=== PATIENT | female | born 1985 ===

== ENCOUNTER 2017-01-22 17:57 | Inpatient (IN) | payer OTHER ==
[2017-01-22 18:03] VITALS: BMI 36.3
[2017-01-22 19:00] VITALS: O2SAT 100
[2017-01-22 19:15] LABS: HEMATOCRIT 39.3 % (34.0-47.0); MEAN CELL VOLUME 81.4 fl (81.0-99.0); MEAN CORPUSCULAR HEMOGLOBIN 26.3 pg (27.0-31.0); MEAN CORPUSCULAR HGB CONC 32.4 g/dL (33.0-37.0); RED CELL DISTRIBUTION WIDTH 15.3 % (11.5-14.5); WHITE BLOOD COUNT 17.8 K/uL (4.8-10.8)
[2017-01-22] MEDS ORDERED: Penicillin G 5 Million Unit Vial IVPB ONE ×2 (19:35→19:36)
--- NOTE | 2017-01-22 22:19 | OBHP ---
Datetime: 01/22/2017 19:01 IP Adm Impression: Term, intrauterine ; No Active Labor; Intact Membranes IP Chief Complaint Other: Anhydramnios IP Adm Impression Other: Anhydramnios IP Admit Plan: Admit to unit; Initiate labor induction protocol Admit Comment, IP Provider: This is a 32 y/o at 38 weeks GA, ELISABETH : 02/06/17 base on US who presen ts for scheduled induction of labor due to Anhydramnios on growth scan done today. Patient denies any past medical history. Denies regular uterine contractions, leakage of fluids and/or vaginal bleeding . Reports good movements. Other patient is feeling well, and denies any complains at this evalu ation. PMHx: No reported OBHx: Allergies: NKDA SHx: no reported SocialHx: denies smoking, etoh, and/or recreational drugs. Medications: taking vitamins. O: labs: GBS: positive, antibody screen: neg, Rubella: immune, RPR: neg, HIV: neg, HBsAg: neg, A:32 y/o with IUP at 38 weeks, with scheduled IOL due to Anhydramnios. Plan: -Admit to unit -Start induction of labor protocol -Cervidil Vag once -CBC, Type and Screen, RPR -Penicillin for GBS treatment as per protocol( during active labor) -Case discussed with Dr. Mackenzie Cuba PGY1 Ob hospitalist on-call. Case was discussed earlier today with PMD/MFM dept...will start IOL. Inessa morton and her understand medical condition, IOL, medications, pain management, delvirey and po stpartum care. I saw and examined this pt myslef. JESSICAO...start Cervidl intravaginally Pelvic Type - PN: Adequate Abdomen - PN: Abnormal Lungs - PN: Normal Heart - PN: Normal Thyroid - PN: Normal Neurologic - PN: Normal HEENT - PN: Normal General - PN: Normal FHR - Baseline A Provider: 140 EGA AdmitDate IP: 38.4 IP Indication for Induction: Other IP Indication for Induction Oth: Anhydramnios IP Chief Complaint: Scheduled induction of labor NICHD Variability Prov Fetus A: Moderate 6-25bpm NICHD Accel Fetus A IP Provider: [id number] FHR Category Provider Fetus A: Category I NICHD Decel Fetus A IP Provider: None Genitourinary Exam: Normal Datetime: 01/22/2017 18:36 Extremities - PN: Normal Comments, ACOG Physical Exam: ROS: General - no fatigue HEENT: No GIRALDO; no visual disturbance CV: no CP; no palpitations RESP: No Cough; no SOB GI: No N/V/D : No F/U/D MS: no joint pain IP Hx Assessment: The History has been Reviewed and is Current
--- NOTE | 2017-01-23 06:15 | OBPN ---
Datetime: 01/23/2017 06:10 IP Progress Impression: Reassuring heart rate IP Informed Consent Obtain: Vaginal Delivery; Risks, Benefits and Alternatives Discussed IP Progress Plan: Continue present management; Induction; Cervical Ripening IP Progress Note Comment: Notified that no cervical change...Cervidil removed...will start Cytotec 5 0mcg po q4h... medications were discussed with patient and her upon admission FHR Category Provider Fetus A: Category I Datetime: 01/22/2017 19:01 FHR - Baseline A Provider: 140 NICHD Accel Fetus A IP Provider: [id number] NICHD Variability Prov Fetus A: Moderate 6-25bpm NICHD Decel Fetus A IP Provider: None
[2017-01-24] MEDS ORDERED: Nalbuphine 20 mg/ml Inj (1 ml) IVP ONE (01:30)
[2017-01-24] MEDS: Lactated Ringer's 1,000 ML IV SCH ×2 (09:00→16:00)
--- NOTE | 2017-01-24 13:22 | OBPN ---
Datetime: 01/24/2017 13:17 IP Progress Impression Other: Anhydramnios IP Procedures: Sterile Vag Exam IP Progress Plan: Cervical Ripening Membranes, Provider: Intact FHR - Baseline A Provider: 140 IP Progress Note Comment: 32 yo G1 at 38+6 wks for induction for anhydramnios s/p cervidil, oral mis o x 3, and cervidil #2 Pt given miso 25 mcg vaginally at 1:15pm GBS positive, will restart PCN for GBS prophylaxis when labor starts Vital Signs Provider: Reviewed NICHD Accel Fetus A IP Provider: [id number] FHR Category Provider Fetus A: Category I NICHD Variability Prov Fetus A: Moderate 6-25bpm Dilatation, Provider: 0 Effacement, Provider: 50 Station, Provider: -3 NICHD Decel Fetus A IP Provider: None
[2017-01-25] MEDS ORDERED: Oxytocin 30 units/LR 500ML 500 ML IV SCH (07:15)
[2017-01-25] MEDS: Lactated Ringer's 1,000 ML IV SCH (09:04)
--- NOTE | 2017-01-25 09:30 | OBPN ---
Datetime: 01/25/2017 09:27 IP Progress Impression: Reassuring heart rate; Reactive non-stress test IP Informed Consent Obtain: Vaginal Delivery; Risks, Benefits and Alternatives Discussed IP Progress Plan: Induction Membranes, Provider: Intact FHR - Baseline A Provider: 140 IP Progress Note Comment: OB Hospitalist eulalio...Pt was started on Cervidil, changed to Cytotec and now Pitocin ordered. She was admitted by hi Jan 22 for [place]. She feels fine. +FM. She understands her medical condition, IOL, Pitocin... Operative deliver vs continued IOL discussed. She wants to start Pitocin for IOL. NICHD Accel Fetus A IP Provider: [id number] FHR Category Provider Fetus A: Category I NICHD Variability Prov Fetus A: Moderate 6-25bpm
--- NOTE | 2017-01-25 12:02 | OBPN ---
Datetime: 01/25/2017 11:59 IP Progress Impression: Reassuring heart rate IP Informed Consent Obtain: Vaginal Delivery; Risks, Benefits and Alternatives Discussed IP Progress Plan: Continue present management; Induction Pool Provider: Negative Membranes, Provider: Intact Contraction Comments Provider: 2-3m FHR - Baseline A Provider: 140 Presentation-Admit: Vertex IP Progress Note Comment: OB hospitalist eulalio She feels CTX pain AROM attempted but too high Pitocin at 10miu/h Discussion with pt about continued IOL...nipple stim/Pitocin/unable to place balloon NICHD Accel Fetus A IP Provider: [id number] FHR Category Provider Fetus A: Category I NICHD Variability Prov Fetus A: Moderate 6-25bpm Dilatation, Provider: FT Effacement, Provider: long Station, Provider: high NICHD Decel Fetus A IP Provider: None
[2017-01-25] MEDS ORDERED: Lactated Ringer's 2,000 ML IV SCH (16:30)
[2017-01-25] MEDS ORDERED: ceFAZolin 2 GM in Sodium Chloride 0.9% 100 ML IVPB ONE (16:33)
[2017-01-25] MEDS ORDERED: Morphine 1 mg/ml preservative-free Inj(Duramorph) ONE (16:46)
[2017-01-25] MEDS ORDERED: Succinylcholine 200 mg/10 ml Inj IV ONE (16:49)
--- NOTE | 2017-01-25 16:52 | OBPN ---
Datetime: 01/25/2017 16:30 IP Progress Impression Other: Failed induction IP Progress Impression: Reassuring heart rate IP Informed Consent Obtain: Section Delivery; Risks, Benefits and Alternatives Discussed IP Progress Plan: Deliver- Section FHR - Baseline A Provider: 130 Presentation-Admit: Vertex IP Progress Note Comment: Notiifed by Yessenia Mendoza that she wants to be checked...SVE no change. Failed Induction requested C/S condition explained...procedure with risks/complications disucssed. Her questions answered...Info rmed sonsent obtained. NICHD Accel Fetus A IP Provider: [id number] FHR Category Provider Fetus A: Category I NICHD Variability Prov Fetus A: Moderate 6-25bpm Dilatation, Provider: FT Effacement, Provider: LONG Station, Provider: HIGH NICHD Decel Fetus A IP Provider: None
[2017-01-25] MEDS ORDERED: Oxytocin 30 units/LR 500ML 500 ML IV ONE (17:25)
[2017-01-25] MEDS ORDERED: Oxycodone/Acetaminophen 5/325 mg Tab PO PRN ×2 (18:03→22:29)
[2017-01-25 19:48] VITALS: BP 108/89; PULSE 95; RESP 16; TEMP 98
[2017-01-25] MEDS ORDERED: DiphenhydrAMINE 50 mg/ml Inj IVP PRN (22:29)
[2017-01-26 06:19] LABS: HEMATOCRIT 34.4 % (34.0-47.0); MEAN CELL VOLUME 80.7 fl (81.0-99.0); MEAN CORPUSCULAR HEMOGLOBIN 26.8 pg (27.0-31.0); MEAN CORPUSCULAR HGB CONC 33.2 g/dL (33.0-37.0); RED CELL DISTRIBUTION WIDTH 15.1 % (11.5-14.5); WHITE BLOOD COUNT 15.8 K/uL (4.8-10.8)
--- NOTE | 2017-01-26 08:24 | OBPPN ---
Datetime: 01/26/2017 08:21 PP Pain Prov: Within normal limits PP Nausea Prov: Denies PP Flatus Prov: No PP BM Prov: No PP Breasts Prov: Normal PP Heart Prov: Normal PP Lungs Prov: Normal PP Abdomen/Uterus Prov: Normal PP Lochia Prov: Normal PP Vulva/Perineum Prov: Normal PP CVA Tenderness Prov: Normal PP Extremities Prov: Normal PP C/S Incision Prov: Normal PP Progress Prov: Normal PP Impression Prov: Normal progression PP Plan Prov: Continue present management PP Progress Note Prov: She feels fine...morfin just removed A: S/P C/S for failed IOL PLAN: continue post op care Vital Signs Provider PP: Reviewed; Within Normal Limits
--- NOTE | 2017-01-26 16:55 | OP ---
PROCEDURE DATE: 01/25/2017 PREOPERATIVE DIAGNOSES: Intrauterine at full term, failed induction of labor. POSTOPERATIVE DIAGNOSES: Intrauterine at full term, failed induction of labor. PROCEDURE: Primary low transverse section via Pfannenstiel incision. SURGEON: Boris Mann DO. EMPLOYMENT OFFICE CLERK: Dr. Regulo Becerra (Dr. Regulo Becerra is a board certified FINANCIAL SERVICE REP physician who happened to be available in L and D to assist on this case. No residents available. He was present from the ti me of incision and delivery to the closure of the skin. His presence was vital for assistance in thi s case). ANESTHESIOLOGIST: Dr. Sanders. ANESTHESIA: Spinal. FINDINGS: Live infant delivered from a cephalic presentation. score 9 and 9 given at 1 and 5 minutes respectively. Clear amniotic fluid. Placenta was delivered intact manually. Ovaries and tu bes appeared to be within normal limits grossly. All equipment, sponges and needles were accounted for. She remained hemodynamically stable throughout the procedure. BLOOD LOSS: 800 mL. OPERATIVE FINDINGS: The patient was brought to the operating room. After successful spinal anesthes ia by Dr. Sanders, she was placed in a supine position. Compression boots were placed on both lower ex tremities. A catheter was used to drain the bladder of its contents and left in place. She was drap ed and prepped in the usual sterile manner. Once adequate anesthesia was obtained, a Pfannenstiel in cision was made using a scalpel. Incision was taken down to underlying fascia using electrocautery. The fascia was nicked in the midline and extended bilaterally using electrocautery. The inferior as pect of the fascia was grasped using 2 Juan F clamps and tented up, and the rectus muscle was both bl untly and sharply dissected. The same was done with the superior aspect of the fascia. In the midli ne superiorly, the rectus muscle was bluntly. The peritoneum was identified and tented up using 2 Rasheeda clamps. This was incised using Metzenbaum scissors. The incision was then extended cantrell periorly and inferiorly with direct visualization of bladder and intestines. Bladder blade was then inserted. The peritoneum on the uterus was then incised using Metzenbaum scissors. The incision was then extended bilaterally using Metzenbaum scissors. Bladder flap was created digitally. Bladder b lade was then inserted behind the bladder flap. A low transverse incision was made using a scalpel. Upon entering the uterus, the incision was then extended using bandage scissors. Rupture of membran es was performed using forceps with teeth. The was then delivered as atraumatically as possib le. First, the head was delivered, was bulb suctioned nasopharyngeally and the remainder of the infa nt was then delivered as atraumatically as possible. The cord was clamped and cut and infant was alejandra ded to the tank truck loader in attendance. The placenta was delivered intact manually. Good contraction of the uterus was noted. Ovaries and tubes appeared to be within normal limits grossly. 0 Vicryl s uture was used to close the first layer of the uterus in an interlocking fashion. The second layer o f the uterus was closed using 0 Vicryl suture imbricating the first layer. Good hemostasis was assur ed. The posterior cul-de-sac was cleared of debris and clots. The uterus was placed back into perit [place] cavity. Copious irrigation was performed. Paracolic gutters were noted to be clear of debris and clots. The incision on the uterus was noted to have good hemostasis. The 0 Vicryl suture was us ed to approximate the peritoneum in a running fashion. The rectus muscle was noted to have good hemo stasis. The 0 Vicryl suture was used to approximate the fascia in a running fashion. Irrigation was performed. Hemostasis was assured using electrocautery. A 2-0 plain suture was used to approximate the subcuticular times 2. A 3-0 Vicryl suture was used to approximate the skin in a running fashion . Dermabond was applied. Pressure bandage and Steri-Strips were placed. She was brought to the rec overy room in stable condition. All equipment, sponges and needles were accounted for. Boris Mann DO cc: 135 TT: 01/26/2017 16:54:10 robyn
[2017-01-26] MEDS: Oxycodone/Acetaminophen 5/325 mg Tab PO PRN ×2 (17:54→22:23)
[2017-01-27] MEDS ORDERED: Lansinoh for Breast Feeding Mothers TP ONE ×2 (00:31→21:20)
[2017-01-27] MEDS: Oxycodone/Acetaminophen 5/325 mg Tab PO PRN ×2 (02:54→21:53)
[2017-01-28] MEDS ORDERED: Lansinoh for Breast Feeding Mothers TP ONE (11:00)
--- NOTE | 2017-01-28 11:21 | OBDCSUM ---
Datetime: 01/28/2017 11:20 Discharged to, Provider: Home Follow up at, Provider: OB Disch Instr Activity: Normal activity Disch Instr Diet: Regular Discharge Instructions, Provider: Routine instructions given Discharge Diagnosis, Provider: Term Delivered Discharge Time: 01/28/2017 11:20 Follow up in weeks, Provider: 2 wks and 6 wks Disch Referrals: None Contraception discussed, Prov: Yes Disch Activity Restrictions: No exercising; No sexual activity; Nothing in vagina - Wolverine, temple cristobal degroot Discharge Comment, Provider: Return to hospital if increased bleeding, pain, temp
--- NOTE | 2017-01-28 11:21 | OBPPN ---
Datetime: 01/28/2017 11:16 PP Pain Prov: Within normal limits PP Nausea Prov: Denies PP Flatus Prov: Yes PP Breasts Prov: Normal PP Heart Prov: Normal PP Lungs Prov: Normal PP Abdomen/Uterus Prov: Normal PP Lochia Prov: Normal PP Vulva/Perineum Prov: Normal PP CVA Tenderness Prov: Normal PP Extremities Prov: Normal PP Comments Phys Exam Prov: Fundus firm under umbilicus Incision clean/dry/intact PP Impression Prov: Normal progression PP Plan Prov: Continue present management PP Progress Note Prov: Patient denies CP, no SOB, no N/V, tolerating PO diet, ambulating/voiding wel l, mild lochia, abdominal pain tolerable with meds, A/P POD #3 1. Discharge instructions reviewed 2. Discharge patient IP PP Procedures: None Vital Signs Provider PP: Reviewed; Within Normal Limits
== END 2017-01-28 14:05 | disposition home or self-care (01) | DRG 766 ==
LOC: H.EROB2 17:57 → H.L&D 18:08 → H.OB/GYN 01-25 21:20
PROVIDERS: ADMIT Obstetrics & Gynecology; ATTEND Obstetrics & Gynecology
PROC: 4A1HXCZ Monitoring of Products of Conception, Cardiac Rate, External Approach (ICD-10-PCS; 2017-01-22)
PROC: 3E0P7GC Introduction of Other Therapeutic Substance into Female Reproductive, Via Natural or Artificial Opening (ICD-10-PCS; 2017-01-24)
PROC: 10D00Z1 Extraction of Products of Conception, Low, Open Approach (ICD-10-PCS; principal; 2017-01-25)
DX: O41.03X0 Oligohydramnios, third trimester, not applicable or unspecified (principal); O61.9 Failed induction of labor, unspecified; O99.820 Streptococcus B carrier state complicating pregnancy; Z3A.38 38 weeks gestation of pregnancy; Z37.0 Single live birth

== ENCOUNTER 2017-07-11 18:08 | Emergency (ER) | payer OTHER ==
[2017-07-11 18:09] VITALS: BMI 36.3
[2017-07-11 18:20] VITALS: BP 137/85; PULSE 94; RESP 18; TEMP 98.6; O2SAT 99
--- NOTE | 2017-07-11 19:12 | ED PDOC ---
HPI: General Adult Time Seen by Provider: 07/11/17 18:48 Chief Complaint (Nursing): Female Genitourinary History Per: Patient Additional Complaint(s): Pt. states for the past 10 days she's had heavy vaginal bleeding. States initially the first 4 days were not too heavy but then bleeding worsened. Today she began to pass clots. Pt. contacted Dr. Gonsalves's office who instructed her to come to ED for further evaluation. Of note, pt. is 5 months post . Had C- section without complications. Currently with low back pain that is usually present with her menstruation. Denies N/V/D, dysuria, hematuria, fever, weakness , hx of anemia. Past Medical History Reviewed: Historical Data, Nursing Documentation, Vital Signs Vital Signs: Last Vital Signs Temp 98.6 F 07/11/17 18:16 Pulse 94 H 07/11/17 18:16 Resp 18 07/11/17 18:16 BP 137/85 07/11/17 18:16 Pulse Ox 99 07/11/17 19:50 - Family History Family History: States: No Known Family Hx - Home Medications Home Medications: Ambulatory Orders Medication Instructions Recorded Multivit/Folic Acid/I 1 tab PO DAILY 01/22/17 [] Ibuprofen [Motrin Tab] 600 mg PO Q6 PRN #30 tab 01/28/17 oxyCODONE/Acetaminophen [Percocet 1 tab PO Q4 PRN #30 tab 01/28/17 5/325 mg Tab] - Allergies Allergies/Adverse Reactions: Allergies Allergy/AdvReac Type Severity Reaction Status Date / Time coffee (Coffea arabica) AdvReac FATIGUE Verified 01/23/17 11:17 Review of Systems ROS Statement: Except As Marked, All Systems Reviewed And Found Negative Genitourinary Female: Positive for: Vaginal Bleeding Musculoskeletal: Positive for: Back Pain Physical Exam - Reviewed Nursing Documentation Reviewed: Yes Vital Signs Reviewed: Yes - Physical Exam Appears: Positive for: Well, Non-toxic, No Acute Distress Head Exam: Positive for: ATRAUMATIC, NORMAL INSPECTION, NORMOCEPHALIC Skin: Positive for: Normal Color, Warm. Negative for: Rash Eye Exam: Positive for: EOMI, Normal appearance, PERRL ENT: Positive for: Normal ENT Inspection Neck: Positive for: Normal, Painless ROM Cardiovascular/Chest: Positive for: Regular Rate, Rhythm Respiratory: Positive for: CNT, Normal Breath Sounds Gastrointestinal/Abdominal: Positive for: Normal Exam, Bowel Sounds, Soft. Negative for: Tenderness Pelvic Exam: Positive for: External Exam Normal, No Cerv. Motion Tender, Blood, Other (Mnierva RN present as packing inspector). Negative for: Active Bleeding, Discharge , Lesions, Mass, Tender W/Cervical Motion, Tender Adnexa, Tender Uterus Back: Positive for: Normal Inspection. Negative for: L CVA Tenderness, R CVA Tenderness Extremity: Positive for: Normal ROM Neurologic/Psych: Positive for: Alert, Oriented - Laboratory Results Result Diagrams: 07/11/17 19:30 07/11/17 19:30 - ECG O2 Sat by Pulse Oximetry: 99 Disposition - Clinical Impression Clinical Impression: Menorrhagia - Patient ED Disposition Is Patient to be Admitted: Transfer of Care (Signed out to Edwin MCGEE pending US results.) - Disposition Disposition Time: 20:00 Condition: STABLE Forms: [employer] (Uzbek)
[2017-07-11 19:38] LABS: BASO # 0.1 K/uL (0.0-0.2); BASO % 0.5 % (0.0-2.0); EOS # 0.1 K/uL (0.0-0.7); EOS % 1.1 % (0.0-4.0); HEMATOCRIT 38.2 % (34.0-47.0); LYMPH # 2.6 K/uL (1.0-4.3); LYMPH % 22.2 % (20.0-40.0); MEAN CELL VOLUME 79.1 fl (81.0-99.0); MEAN CORPUSCULAR HEMOGLOBIN 25.8 pg (27.0-31.0); MEAN CORPUSCULAR HGB CONC 32.7 g/dL (33.0-37.0); MEAN PLATELET VOLUME 8.7 fl (7.2-11.7); MONO # 0.7 K/uL (0.0-0.8); MONO % 5.6 % (0.0-10.0); NEUT # 8.2 K/uL (1.8-7.0); NEUT % 70.6 % (50.0-75.0); RED CELL DISTRIBUTION WIDTH 14.2 % (11.5-14.5); WHITE BLOOD COUNT 11.6 K/uL (4.8-10.8)
[2017-07-11 19:41] LABS: RBC URINE 50 /hpf (0-3); URINE BACTERIA OCC (<OCC); URINE BILIRUBIN NEGATIVE (NEGATIVE); URINE BLOOD LARGE (NEGATIVE); URINE COLOR YELLOW (YELLOW); URINE GLUCOSE (UA) NEG (Normal); URINE KETONE NEGATIVE (NEGATIVE); URINE LEUKOCYTE ESTERASE NEG Leu/uL (Negative); URINE PROTEIN 30 mg/dL (NEGATIVE); URINE UROBILINOGEN 0.2-1.0 mg/dL (0.2-1.0); WBC URINE 3 /hpf (0-5)
[2017-07-11 19:48] LABS: ALB/GLOB RATIO 1.4 (1.0-2.1); ALKALINE PHOSPHATASE 89 U/L (38-126); ALT/SGPT 43 U/L (9-52); AST/SGOT 32 U/L (14-36); BILIRUBIN,TOTAL 0.3 mg/dl (0.2-1.3); BLOOD UREA NITROGEN 9 mg/dl (7-17); CALCIUM 9.2 mg/dL (8.4-10.2); CARBON DIOXIDE 23 mmol/L (22-30); CHLORIDE 105 mmol/L (98-107); GFR AFRICAN-AMERICAN > 60; GLUCOSE,RANDOM 98 mg/dL (65-105); POTASSIUM 4.4 MMOL/L (3.6-5.0); SODIUM 140 mmol/l (132-148); TOTAL PROTEIN 7.7 G/DL (6.3-8.2)
[2017-07-11 19:50] LABS: PARTIAL THROMBOPLASTIN TIME 32.9 Seconds (25.6-37.1)
--- NOTE | 2017-07-11 20:45 | ED PDOC ---
- Laboratory Results Result Diagrams: 07/11/17 19:30 07/11/17 19:30 - ECG O2 Sat by Pulse Oximetry: 99 - Progress ED Course And Treament: Case endorsed to newswriter from Sachin MCGEE pending u/s EXAM: US Pelvis Complete CLINICAL HISTORY: 32 years old, female; Signs and symptoms; Other: Bleeding x 10 days; Additional info: Heavy vaginal bleeding; 5 months post TECHNIQUE: Real-time pelvic ultrasound (complete) with image documentation. COMPARISON: No relevant prior studies available. FINDINGS: Uterus/cervix: Uterus measures 9.8 x 6.4 x 3.8 cm. Endometrium measures 1.7 cm. There is no increased blood flow at the endometrial myometrial junction Nabothian cysts. Right ovary: Right ovary measures 2.4 x 2.5 x 2.4 cm. Follicles. Normal blood flow. Left ovary: Left ovary measures 3 x 2.4 x 2.8 cm. Follicles. Normal blood flow. Free fluid: No free fluid. IMPRESSION: This examination is predicated on a negative test Endometrium is borderline thick for patient's age. Otherwise normal. Recommend PHP DEVELOPER referral Patient educated on findings, discharged with instructions to follow up Machine Operator Replanter 2-3 days. Return to ED for worsening/concerning symptoms. Disposition - Clinical Impression Clinical Impression: Menorrhagia, Endometrial thickening on ultra sound - POA Present On Arrival: None - Disposition Disposition: Routine/Home Disposition Time: 20:44 Condition: STABLE Instructions: Menorrhagia (ED)
--- NOTE | 2017-07-12 09:26 | US ---
HISTORY: heavy vaginal bleeding; 5 months post COMPARISON: None available. TECHNIQUE: Transabdominal and endovaginal ultrasound examination of the pelvis was performed. The endovaginal study was performed for better assessment of the endometrium and deep pelvic structure. FINDINGS: UTERUS: Measures 9.8 x 6.4 x 3.8 cm. Normal in size and appearance. No fibroid or other mass lesion seen. ENDOMETRIUM: Measures 13 mm in diameter. No focal abnormality or significant increase blood flow noted at the endometrium. CERVIX: No cervical abnormality identified. RIGHT OVARY: Measures 3.4 x 3.5 x 2.4 cm. No solid mass. Normal flow. LEFT OVARY: Measures 3.1 x 2.8 x 2.4 cm. No solid mass. Normal flow. FREE FLUID: No significant free fluid noted. OTHER FINDINGS: None. IMPRESSION: This examination is predicated on a negative test Mildly thick homogeneous endometrial stripe measures 1.3 centimeter. Otherwise grossly unremarkable ultrasound examination of the pelvis. Preliminary report was submitted by [facility].
== END 2017-07-11 20:58 | disposition home or self-care (01) ==
LOC: H.ER 18:08
DX: N92.0 Excessive and frequent menstruation with regular cycle (principal)